=== PATIENT | female | born 1990 | race Caucasian/White ===

== ENCOUNTER 2022-06-21 09:32 | Emergency (ER) | payer BC ==
[2022-06-21] MEDS ORDERED: Sodium Chloride 0.9% 10 ML Syringe FLUSH PRN (10:06)
[2022-06-21] MEDS ORDERED: methylPREDNISolone Sodium Succinate 125 MG/2 ML SDV IVPUSH ONE (10:06)
[2022-06-21] MEDS ORDERED: Famotidine 20 MG/2 ML SDV IVPUSH ONE (10:07)
== END 2022-06-21 11:02 | disposition home or self-care (01) ==
LOC: JD.ED 09:32
DX: L50.0 Allergic urticaria (principal); Z72.0 Tobacco use
CPT/HCPCS: 96374; 96375; 99283; J2930; J3490; 99284